=== PATIENT | female | born 1960 | race Caucasian/White ===

== ENCOUNTER 2019-09-19 23:47 | Emergency (ER) | payer BC ==
[~2019-09-19] VITALS: Ht 154.9 cm; Wt 68.0 kg
[2019-09-19 23:50] VITALS: BP_SYST 126
--- NOTE | 2019-09-19 23:55 | NUR ---
Placed in room 01 . Placed on monitoring manager, blood pressure machine and pulse oximeter. To gown for exam. Side rails up.
--- NOTE | 2019-09-20 00:50 | NUR ---
ER Dr. Cooper at bedside examining patient.
--- NOTE | 2019-09-20 00:55 | NUR ---
Pt presents to ER with c/o SOB. Pt A&Ox4. Pt states she woke up at approximately 1130 PM and had SOB. Breath sounds bilaterally clear with no use of accessory muscles. Pt states she has had a "scratchy throat for about a week." Pt states a burning sensation in chest. Pt states chest pain is 5/10. Pt states nausea present. Pt denies vomiting. Will continue to monitor.
[2019-09-20] MEDS ORDERED: LEVALBUTEROL HCL 0.63 MG/3 ML VIAL.NEB INH ONE (01:00)
--- NOTE | 2019-09-20 01:20 | NUR ---
Radiology at bedside.
--- NOTE | 2019-09-20 01:58 | NUR ---
ER Dr. Cooper at bedside explaining results to patient.
[2019-09-20] MEDS ORDERED: MAG-AL HYDROX/SIMETH 30 ML UDC PO ONE (02:00)
[2019-09-20 02:44] VITALS: BP_SYST 110
--- NOTE | 2019-09-20 02:44 | NUR ---
Patient given written and verbal discharge instructions and verbalizes understanding. ER MD Cooper discussed with patient the results and treatment provided. Patient in stable condition. ID arm band removed. No Rx given. Patient educated on pain management and to follow up with PMD. Pain Scale 0/10. Opportunity for questions provided and answered. Medication side effect fact sheet provided.
== END 2019-09-20 02:44 | disposition home or self-care (01) ==
LOC: SED 23:47
DX: R06.02 Shortness of breath (principal); J02.9 Acute pharyngitis, unspecified; K21.0 Gastro-esophageal reflux disease with esophagitis
CPT/HCPCS: 36415; 71045; 86403; 87081; 93005; 94640; 99284; J7614